=== PATIENT | male | born 1995 | race Hispanic/Latino ===

== ENCOUNTER 2019-07-23 15:31 | Day surgery (SDC) | payer OTHER ==
[~2019-07-23] VITALS: Ht 175.3 cm; Wt 88.6 kg
[2019-07-23 15:58] LABS: BASO % 0.3 % (0.0-1.0); EOS # 0.1 10^3/uL (0.0-0.5); EOS % 0.4 % (0.0-3.0); HEMATOCRIT 45.8 % (42.0-52.0); LYMPH # 1.3 10^3/uL (1.5-5.0); LYMPH % 10.5 % (24.0-44.0); MEAN CORPUSCULAR HEMOGLOBIN 28.4 pg (27.0-33.0); MEAN CORPUSCULAR HGB CONC 34.9 g/dl (32.0-36.5); MEAN CORPUSCULAR VOLUME 81.3 fl (80.0-96.0); MONO # 0.8 10^3/uL (0.0-0.8); MONO % 6.4 % (0.0-5.0); NEUTROPHILS # 10.4 10^3/uL (1.5-8.5); NEUTROPHILS % 81.9 % (36.0-66.0); PLATELET COUNT, AUTOMATED 194 10^3/uL (150-450); RED BLOOD COUNT 5.63 10^6/uL (4.30-6.10); WHITE BLOOD COUNT 12.7 10^3/uL (4.0-10.0)
[2019-07-23] MEDS ORDERED: ONDANSETRON 4MG/2ML VIAL (J2405) IV ONE (16:00)
[2019-07-23] MEDS ORDERED: MORPHINE 4 MG/ML 1ML VIAL/SYRINGE (J2270) IV ONE ×2 (16:00→17:00)
[2019-07-23] MEDS ORDERED: NS 1,000 ML IV ONE (16:00)
[2019-07-23] MEDS ORDERED: ISOVUE-370 76% 100ML VIAL (Q9967) As Ordered ONE (16:01)
[2019-07-23 16:25] LABS: ALBUMIN 4.5 GM/DL (3.2-5.2); BILIRUBIN,DIRECT 0.3 MG/DL (0.0-0.2); BILIRUBIN,TOTAL 1.4 MG/DL (0.2-1.0); TOTAL PROTEIN 8.2 GM/DL (6.4-8.2)
--- NOTE | 2019-07-23 16:49 | REP ---
Clinical: Right lower quadrant pain. Technique: Axial contrast enhanced images from the lung bases to the pubic symphysis using 100 ml Isovue 370 intravenous contrast material with coronal and sagittal re-formations. Findings: Dilated fluid-filled appendix measures up to 19 mm maximal diameter with minimal periappendiceal stranding and adjacent reactive adenopathy (axial images 87 - 113). No bowel obstruction. No free air or or significant free fluid/drainable collection. Scattered sigmoid diverticula noted without acute diverticulitis. Liver, spleen, pancreas, gallbladder, bilateral adrenal glands and kidneys are normal. Further evaluation the pelvis demonstrates normal bladder and age appropriate prostate/seminal vesicles. Abdominal aorta and vasculature without aneurysm or dissection. Musculoskeletal structures are intact. Lung bases are clear. Impression: Acute appendicitis with fluid-filled dilated appendix measuring up to 19 mm diameter. No associated bowel obstruction, perforation, free air, free fluid or drainable collection/abscess. Electronically Signed by Ishan Yun MD 07/23/2019 04:41 P
[2019-07-23] MEDS ORDERED: PIPERACILLIN/TAZOBACTAM SOD 3.375 GM in D5W MINI-BAG PLUS 50 ML IV ONE (17:00)
[2019-07-23] MEDS ORDERED: ACETAMINOPHEN TAB 650MG DOSE (2X325MG) PO PRN (17:15)
[2019-07-23] MEDS ORDERED: NORCO, ANEXSIA 5/325MG TABLET (HYDROcodone/ACETAMINOPHEN) PO PRN (17:15)
[2019-07-23] MEDS ORDERED: ONDANSETRON 4MG/2ML VIAL (J2405) IV PRN ×2 (17:15→18:45)
[2019-07-23] MEDS ORDERED: KETOROLAC 30 MG/ML VIAL (J1885) IV PRN (17:15)
[2019-07-23] MEDS ORDERED: BUPIVACAINE/EPIN 0.25% 30 ML VIAL As Ordered ONE (17:18)
[2019-07-23] MEDS ORDERED: ROCURONIUM BROMIDE 50 MG/5 ML VIAL As Ordered ONE (17:22)
[2019-07-23] MEDS ORDERED: propofoL 200 MG/20 ML VIAL As Ordered ONE (17:22)
[2019-07-23] MEDS ORDERED: LIDOCAINE 2% INJ 100 MG/5 ML SDV (FOR ANES.) As Ordered ONE (17:22)
[2019-07-23] MEDS ORDERED: fentaNYL 250 MCG/5 ML INJECTION (J3010) As Ordered ONE (17:22)
[2019-07-23] MEDS ORDERED: MIDAZOLAM INJ 2 MG/2 ML VIAL (J2250) As Ordered ONE ×2 (17:22→18:53)
[2019-07-23] MEDS ORDERED: dexameTHASONE 4 MG/ML 1ML VIAL (J1100) As Ordered ONE (17:42)
[2019-07-23] MEDS ORDERED: ONDANSETRON 4MG/2ML VIAL (J2405) As Ordered ONE (17:42)
[2019-07-23] MEDS ORDERED: SUGAMMADEX SODIUM 500 MG/5 ML VIAL (BRIDION) As Ordered ONE (17:56)
[2019-07-23] MEDS ORDERED: ACETAMINOPHEN 1000MG 100ML IV BTL (OFIRMEV) (J0131 PER 10MG) As Ordered ONE (17:57)
[2019-07-23] MEDS ORDERED: KETOROLAC 60 MG/2 ML VIAL (J1885) As Ordered ONE (17:59)
[2019-07-23] MEDS ORDERED: NORC1TAB7 PO (18:20)
[2019-07-23] MEDS ORDERED: MEPERIDINE INJ 25 MG/ML VIAL (J2175) As Ordered ONE (18:30)
[2019-07-23] MEDS: MEPERIDINE INJ 25 MG/ML VIAL (J2175) IV PRN ×2 (18:34→18:40)
[2019-07-23] MEDS ORDERED: LR 1,000 ML IV SCH (18:45)
[2019-07-23] MEDS ORDERED: fentaNYL 100 MCG/2 ML INJECTION (J3010) IV PRN (18:45)
[2019-07-23] MEDS ORDERED: oxyCODONE 5MG TAB PO PRN (18:45)
[2019-07-23] MEDS: MIDAZOLAM INJ 2 MG/2 ML VIAL (J2250) IV PRN ×2 (18:55→19:11)
--- NOTE | 2019-07-23 19:13 | HPE ---
DATE OF ADMISSION: 07/23/2019 REASON FOR CONSULTATION: Right lower quadrant pain. HISTORY OF PRESENT ILLNESS: The patient is a 24-year-old male who presented with pain that started around room one o'clock this morning in the right lower quadrant. It got progressively worse. He could not tolerate any food this morning. Had nausea and vomiting with breakfast. He eventually came into the emergency room for evaluation. In the emergency room (ER) he had tenderness to palpation. CT was done, which confirmed the diagnosis of acute appendicitis. He also had slightly elevated white count of 12,000. Therefore, I was called to evaluate. Denies any recent travel or trauma to the abdomen. No recent change in medications and no recent illnesses. PAST MEDICAL HISTORY: Negative. PAST SURGICAL HISTORY: [place] teeth removal. FAMILY HISTORY: Noncontributory. ALLERGIES: None. MEDICATIONS: None. SOCIAL HISTORY: Denies drug, alcohol, tobacco abuse. FAMILY HISTORY: Noncontributory. REVIEW OF SYSTEMS: Pertinent positives and negatives as stated in the history of present illness (HPI). PHYSICAL EXAMINATION: GENERAL: Alert and oriented times three. No acute distress. VITAL SIGNS: Temperature 99.4, pulse 61, respirations 18, blood pressure 153/70, pulse oximetry 100% on room air. HEENT: Pupils equally round and react to light and accommodation. HEART: S1, S2, regular rate and rhythm. LUNGS: Clear to auscultation bilaterally. ABDOMEN: Soft. Tender to palpation in right lower quadrant. Localized guarding. No rigidity. EXTREMITIES: No clubbing, cyanosis, or edema. LABORATORY DATA: White count 12.7, hemoglobin 16, platelets 194. IMAGING STUDIES: CT abdomen and pelvis was done, which showed dilated fluid-filled appendix, 19 mm in diameter with minimal periappendiceal stranding and adjacent reactive adenopathy. No signs of bowel obstruction. ASSESSMENT AND PLAN: Patient is a 24-year-old male with acute appendicitis. Recommendation is to proceed laparoscopic appendectomy. Risks and benefits of procedure not limited to, but including, bleeding, infection, hernia formation, damage to surrounding structure, need for further surgery were discussed in detail with the patient. Informed consent was obtained. Procedure was planned. Postoperatively will keep him overnight if the appendix looks severely inflamed or if any signs of perforation intraoperatively, otherwise will plan to discharge him home this evening.
[2019-07-23 19:45] VITALS: BP 151/78
[2019-07-23] MEDS: SENOKOT S TAB PO SCH (20:12)
[2019-07-23] MEDS: KCL 20MEQ IN D5/0.45NS 1000ML 1,000 ML IV SCH (20:13)
[2019-07-23 20:15] VITALS: BP 143/78
[2019-07-23 20:45] VITALS: BP 142/77
[2019-07-23 21:45] VITALS: BP 125/64
[2019-07-23 22:45] VITALS: BP 145/77
[2019-07-23] MEDS: PIPERACILLIN/TAZOBACTAM SOD 3.375 GM in D5W MINI-BAG PLUS 50 ML IV SCH (23:11)
[2019-07-23 23:45] VITALS: BP 130/67
[2019-07-24 00:45] VITALS: BP 136/66
[2019-07-24] MEDS: KCL 20MEQ IN D5/0.45NS 1000ML 1,000 ML IV SCH ×2 (01:30→06:06)
[2019-07-24] MEDS: PIPERACILLIN/TAZOBACTAM SOD 3.375 GM in D5W MINI-BAG PLUS 50 ML IV SCH (04:40)
[2019-07-24 05:00] VITALS: BP 134/65
[2019-07-24 06:00] VITALS: BP 120/56
[2019-07-24 06:49] LABS: HEMATOCRIT 38.8 % (42.0-52.0); MEAN CORPUSCULAR HEMOGLOBIN 29.4 pg (27.0-33.0); MEAN CORPUSCULAR HGB CONC 35.6 g/dl (32.0-36.5); MEAN CORPUSCULAR VOLUME 82.7 fl (80.0-96.0); PLATELET COUNT, AUTOMATED 164 10^3/uL (150-450); RED BLOOD COUNT 4.69 10^6/uL (4.30-6.10); WHITE BLOOD COUNT 12.9 10^3/uL (4.0-10.0)
[2019-07-24 07:02] LABS: HEMOGLOBIN 13.8 g/dl (13.5-17.5)
[2019-07-24 07:07] LABS: BLOOD UREA NITROGEN 8 MG/DL (7-18); CALCIUM LEVEL 8.5 MG/DL (8.5-10.1); CARBON DIOXIDE LEVEL 25 MEQ/L (21-32); CHLORIDE LEVEL 110 MEQ/L (98-107); CREATININE FOR GFR 0.99 MG/DL (0.70-1.30); GLOMERULAR FILTRATION RATE > 60.0 (>60); GLUCOSE, FASTING 134 MG/DL (70-100); POTASSIUM SERUM 4.2 MEQ/L (3.5-5.1); SODIUM LEVEL 139 MEQ/L (136-145)
[2019-07-24] MEDS: SENOKOT S TAB PO SCH (08:19)
--- NOTE | 2019-07-24 09:15 | RO ---
DATE OF PROCEDURE: 07/23/2019 PREOPERATIVE DIAGNOSIS: Acute appendicitis. POSTOPERATIVE DIAGNOSIS: Acute appendicitis. PROCEDURE: Laparoscopic appendectomy. SURGEON: Dr. Omar Parker CLEANING TEAM MEMBER: None. ANESTHESIA: General. ESTIMATED BLOOD LOSS: 5 mL. COMPLICATIONS: None. INDICATIONS FOR PROCEDURE: The patient is a 24-year-old male who presents with acute appendicitis. Recommendation was to proceed with laparoscopic appendectomy. Risks and benefits of the procedure not limited to, but including bleeding, infection, hernia formation, damage to surrounding structures, need for further surgery were discussed in detail with the patient. Informed consent was obtained and procedure was planned. DESCRIPTION OF PROCEDURE: The patient was back to operating room three, after sufficient sedation, the abdomen was sterilely prepped and draped. Next, a time-out was done to confirm proper patient and proper procedure. Next, a 5 mm incision made in left upper quadrant, Veress needle was inserted and the abdomen was insufflated to 15 mmHg. The Veress needle was then removed and a 5 mm Optiview port was used to gain access to the abdomen. Once the abdomen was entered, 8 mm port was placed supraumbilically in midline, another 5 mm port suprapubically in the midline. The appendix was then identified in the right lower quadrant; it was very large but the base was soft and compressible. I was able to dissect through the mesoappendix using the Enseal to the base, two PDS Endoloops were placed around the base of the appendix and then the appendix was amputated using the Enseal. Appendix was then placed inside of 5 mm EndoCatch bag and brought out through the supraumbilical port site. Once the appendix was removed, the fascia at the umbilical port site was closed with a [id number] #0 Vicryl suture using a Reg-Alek needle. Once that was completed, the abdomen was desufflated. The skin incisions were closed with #4-0 Vicryl subcuticular sutures. The abdomen was cleaned and dried. Steri-Strips, 4x4 and tape were applied thus ending procedure.
[2019-07-24 10:00] VITALS: BP 109/61
== END 2019-07-24 10:12 | disposition home or self-care (01) ==
LOC: M ED 15:31 → EDBD 15:31 → M SDC 15:32 → M MSPAV 19:30 → M SDC 07-24 10:12
PROVIDERS: ATTEND Surgery
DX: K35.80 Unspecified acute appendicitis (principal); R11.0 Nausea
CPT/HCPCS: 36415; 44970; 74177; 80047; 80048; 80076; 83690; 85025; 85027; 88304; 96365; 96366; 96375; 96376; 99284; J0131; J1100; J1885; J2175; J2250; J2270; J2405; J2543; J3010; Q9967

== ENCOUNTER → 2020-04-19 | Outpatient (CLI) | payer OTHER ==
[~2020-04-19] MED LIST: FUROSEMIDE 20MG/2ML VIAL (J1940) As Ordered ONE; NORC1TAB7 PO
--- NOTE | 2020-04-19 10:15 | REP ---
INDICATION: R UPPER QUAD PAIN. Evaluate renal function following right ureteral stent placement February 24, 2020 followed by removal 2 weeks later, March 13, 2020. Rule out obstruction on the right side. COMPARISON: Comparison CT study is from July 23, 2019.. TECHNIQUE: 8.7 mCi of Technetium-99m MAG3 is injected and sequential posterior flow and excretory phase imaging are acquired. Renal cortical regions of interest are drawn and time activity curves are plotted for renal functional analysis. 20 mg of intravenous Lasix is administered and post Lasix renal agger fee is carried out. Pre and postvoid images including the kidneys and bladder were acquired. FINDINGS: Posterior flow study shows symmetric perfusion of the kidneys bilaterally. Symmetrical function and symmetric appearance of the collecting systems is observed bilaterally, 3 minutes. Differential function analysis is asymmetric with 51.5 % of overall renal cortical counts coming from the left kidney and 48.5 % coming from the right. Time to peak activity is normal at 2.0 minutes bilaterally. Time to half max activity is normal bilaterally measured at 8.3 minutes on the left and 9.0 minutes on the right. Pre and postvoid images are unremarkable. There is good bladder emptying Post Lasix Jany fee shows good clearance of the upper pole collecting systems after Lasix. Time to half Lasix activity on the left is 5.7 minutes and on the right 6.6 minutes. There is no evidence of obstructive uropathy on either side. IMPRESSION: Normal nuclear renal scintigraphy with differential flow and function analysis and post Lasix renal agger fee. No evidence to suggest obstructive uropathy on either side. <Electronically signed by Jerel Shetty > 04/19/20 [id number]
== END ==
LOC: M RAD 08:03
PROVIDERS: ATTEND Physician Assistant
DX: R10.11 Right upper quadrant pain (principal)
CPT/HCPCS: 78708; A9562; J1940

== ENCOUNTER → 2020-09-20 | Outpatient (CLI) | payer OTHER ==
[~2020-09-20] MED LIST changes: -FUROSEMIDE 20MG/2ML VIAL (J1940) As Ordered ONE
--- NOTE | 2020-09-21 08:22 | REP ---
INDICATION: SPONDYLOSIS W/O RADICULOPATHY. COMPARISON: None. TECHNIQUE: Sagittal and axial T1 and T2-weighted scans are acquired in the usual fashion with and without fat saturation. Sequences include spin echo, turbo spin-echo, and STIR imaging sequences. FINDINGS: Thoracic vertebral body heights are preserved. Alignment is normal. No fracture or collapse is seen. Cortical and medullary bone signal intensity are normal. The thoracic spinal cord is normal in course, caliber, and signal intensity on T1 and T2 weighted scans. The tip of the conus medullaris appears to be at L1 at the bottom edge of the imaging field of view. The left T1 to neural foramen is widened and there is a dumbbell-shaped lesion within the widened left neural foramen consistent with schwannoma. This is intermediate in signal intensity on T1 and slightly hyperintense relative to skeletal muscle on T2 weighted scans. It does not have simple fluid signal intensity characteristics. It measures 2.4 cm in oblique medial to lateral dimension by 1.2 cm in anteroposterior dimension. Although it widens the neural foramen, it does not appear to compress or displace the thecal sac. No intradural component is appreciated. No other mass lesion is seen. There are minimal degenerative disc changes at T2-3, T5-6, T6-7, T7-8, and T8-9. These disc spaces show minimal narrowing. There is a very small focal disc protrusion to the right of midline at T2-3. There is also a small right posterior focal disc protrusion at T5-6 which flattens the right ventral margin of the cord. There is a tiny central focal disc protrusion at T7-8 and another tiny central focal disc protrusion at T8-9. There is slight disc bulging at T9-10. No spinal stenosis is seen. No cord compression at any of these levels. No other neural foraminal lesion is appreciated. IMPRESSION: 1. There is a dumbbell-shaped left-sided neural foraminal lesion most compatible with schwannoma. This widens the bony neural foramen and measures 2.4 cm in greatest diameter. Recommend dedicated pre and postcontrast MR imaging centered at the cervicothoracic junction. 2. Mild degenerative disc changes with multilevel small focal disc protrusions as above. <Electronically signed by Jerel Shetty > 09/21/20 08
--- NOTE | 2020-09-21 08:27 | REP ---
INDICATION: SPONDYLOSIS W/O RADICULOPATHY. COMPARISON: None. TECHNIQUE: Sagittal and axial T1 and T2-weighted scans are acquired in the usual fashion with and without fat saturation. Sequences include spin echo, turbo spin-echo, and STIR imaging sequences. FINDINGS: Lumbar vertebral body heights are preserved. Alignment is normal. There is no evidence of spondylolysis or spondylolisthesis. The tip of the conus medullaris is normal in position and appearance at the lower margin of L1. No extra vertebral abnormality is appreciated. There is a Schmorl's node at the superior endplate of the L5 vertebral body. No fracture or collapse is seen. Axial and sagittal images at the L5-S1 level demonstrate degenerative narrowing and decreased signal intensity in the disc. There is broad-based disc bulging which effaces the ventral epidural fat but does not compress the cord. No foraminal narrowing is seen at L5-S1. At L4-5, there is a small left posterior focal disc protrusion compressing the left ventral margin of the thecal sac and contacting the left 5th lumbar root. No neural foraminal narrowing is seen. No spinal stenosis is noted. At L3-4, there is minimal diffuse disc bulging. There is mild decreased disc space height and signal intensity. No thecal sac compression. No neural foraminal narrowing. The L2-3 and L1-2 disc levels are unremarkable. IMPRESSION: There is a left posterior focal disc protrusion at L4-5 with mild thecal sac compression. Degenerative disc changes are noted at L5-S1 and to a lesser extent at L3-4. <Electronically signed by Jerel Shetty > 09/21/20 [id number]
== END ==
LOC: M RAD 16:12
PROVIDERS: ATTEND Pain Medicine Interventional Pain Medicine
DX: M47.817 Spondylosis without myelopathy or radiculopathy, lumbosacral region (principal); M47.814 Spondylosis without myelopathy or radiculopathy, thoracic region

== ENCOUNTER → 2020-10-25 | Outpatient (CLI) | payer OTHER ==
[~2020-10-25] MED LIST changes: +FUROSEMIDE 20MG/2ML VIAL (J1940) As Ordered ONE
--- NOTE | 2020-10-25 11:35 | REP ---
INDICATION: HX DISTAL HYDROURETER, COMPARE TO PRIOR. COMPARISON: 04/19/2020 TECHNIQUE/RADIOTRACER AND DOSE: After the intravenous administration of 8.8 mCi of technetium 99 M Mag 3 a renal flow and scan was performed. 20 mg of intravenous Lasix was administered to obtain the Lasix augmented portion of the exam. FINDINGS: The renal flow portion of the examination shows prompt visualization of the abdominal aorta with symmetric distribution of the radiotracer throughout both kidneys in a fashion unchanged from the prior exam. The dynamic renal scan again shows distribution of the radiotracer in both renal collecting systems with evidence of adequate washout characteristics of the renal parenchyma bilaterally. The appearance of this is stable. The functional renogram curves shows time to peak activity to the right kidney to be less than 1 minute and time to peak activity for the left kidney to be 2 minutes. Both values are normal. T 1/2 right kidney is 7.5 minutes T 1/2 right kidney 9 minutes Both values are within normal limits Pre and post Lasix administration scintigraphic evaluation shows excellent washout of the radiotracer in the renal collecting system bilaterally Split differential analysis shows 41.3% of the counts coming from the left kidney and 58.7% calcium and from the right kidney IMPRESSION: Essentially unchanged renal flow in scan which is within normal limits as described above. <Electronically signed by Kunal Godwin > 10/25/20 [id number]
== END ==
LOC: M RAD 09:45
PROVIDERS: ATTEND Physician Assistant
DX: N13.30 Unspecified hydronephrosis (principal)
CPT/HCPCS: 78708; A9562; J1940

== ENCOUNTER → 2020-11-10 | Outpatient (CLI) | payer OTHER ==
[~2020-11-10] MED LIST changes: -FUROSEMIDE 20MG/2ML VIAL (J1940) As Ordered ONE; +PROHANCE 279.3MG/ML 15ML VIAL As Ordered ONE; +PROHANCE 279.3MG/ML 5ML VIAL As Ordered ONE
--- NOTE | 2020-11-10 12:32 | REPVR ---
PROCEDURE INFORMATION: Exam: MR Cervical Spine Without and With Contrast Exam date and time: 11/10/2020 9:57 AM Age: 25 years old Clinical indication: Neck pain; Patient HX: Entire spine pain, nki; Additional info: Back pain TECHNIQUE: Imaging protocol: Multiplanar magnetic resonance images of the cervical spine without and with contrast. Contrast material: PROHANCE; Contrast volume: 19 ml; Contrast route: INTRAVENOUS (IV); COMPARISON: MRI-Spine,Thoracic without con 09/20/2020 5:15 PM FINDINGS: Vertebrae: Straightening of the normal cervical lordosis may be related to patient position or due to muscle spasm. There is preservation of vertebral body height. There is no subluxation. Disc spaces: There is loss of T2 signal within the intervertebral disc spaces, related to degenerative disc disease. Spinal cord: Normal signal. No cord compression. C2-C3: No significant disc disease. No significant spinal stenosis. C3-C4: No significant disc disease. No significant spinal stenosis. C4-C5: No significant disc disease. No significant spinal stenosis. C5-C6: No significant disc disease. No significant spinal stenosis. C6-C7: There is a small bulge without mass effect. No significant spinal stenosis. C7-T1: There is a small leftward bulge without mass effect. No significant spinal stenosis. Soft tissues: Unremarkable. Vertebral arteries: Expected flow voids in the vertebral arteries. Contrast: There is no abnormal parenchymal or meningeal enhancement. IMPRESSION: 1. There is no cervical disc herniation or cervical central stenosis. 2. Straightening of the normal cervical lordosis may be related to patient position or due to muscle spasm. Electronically signed by: Jus Hall On 11/10/2020 12:32:13 PM
--- NOTE | 2020-11-10 12:42 | REPVR ---
PROCEDURE INFORMATION: Exam: MR Thoracic Spine Without and With Contrast Exam date and time: 11/10/2020 9:57 AM Age: 25 years old Clinical indication: Pain in thoracic intervertebral disc disorder; With radiculopathy; Bilateral; Patient HX: Entire spine pain, nki; Additional info: Back pain TECHNIQUE: Imaging protocol: Multiplanar magnetic resonance images of the thoracic spine without and with intravenous contrast. Contrast material: PROHANCE; Contrast volume: 19 ml; Contrast route: INTRAVENOUS (IV); COMPARISON: MRI-Spine,Thoracic without con 09/20/2020 5:15 PM FINDINGS: Vertebrae: Unremarkable. Disc spaces: There is slight loss of disc space height and there is loss of T2 signal within intervertebral disc spaces, related to degenerative disc disease. Spinal cord: Normal signal. No cord compression. T1-T2: No significant disc disease. There is an enhancing dumbbell-shaped left foraminal mass with foraminal expansion measuring up to 2.5 cm consistent with a schwannoma. This partially effaces the left lateral CSF space but does not reach the cord. No significant spinal canal stenosis. T2-T3: There is a small rightward bulge without mass effect. No significant spinal canal stenosis. T3-T4: No significant disc disease. No significant spinal canal stenosis. T4-T5: No significant disc disease. No significant spinal canal stenosis. T5-T6: There is a small rightward bulge without mass effect. No significant spinal canal stenosis. T6-T7: No significant disc disease. No significant spinal canal stenosis. T7-T8: There is a small central protrusion which does reach cord. No significant spinal canal stenosis. T8-T9: No significant disc disease. No significant spinal canal stenosis. T9-T10: There is a small rightward bulge without mass effect. No significant spinal canal stenosis. T10-T11: No significant disc disease. No significant spinal canal stenosis. T11-T12: No significant disc disease. No significant spinal canal stenosis. Soft tissues: Unremarkable. There is no other focus of abnormal enhancement. IMPRESSION: 1. Stable 2.5 cm left foraminal mass at T1-T2 a demonstrate enhancement and is consistent with a schwannoma. 2. Stable mild degenerative changes. There is no thoracic disc herniation or central stenosis. Electronically signed by: Jus Hall On 11/10/2020 12:42:09 PM
== END ==
LOC: M RAD 08:09
PROVIDERS: ATTEND Family Medicine
DX: D33.4 Benign neoplasm of spinal cord (principal); M54.9 Dorsalgia, unspecified
CPT/HCPCS: 72156; 72157; A9576